=== PATIENT | female | born 1950 | race Caucasian/White ===

== ENCOUNTER → 2019-06-02 10:07 | Outpatient (CLI) | payer MEDICARE, OTHER, SELFPAY ==
--- NOTE | 2019-06-02 | DI.US.S_ITS ---
LIMITED ULTRASOUND OF LEFT BREAST: 06/02/2019 CLINICAL: Palpable left breast lump. Comparison is made to exam dated: 06/02/2019 mammogram - [facility]. Color flow and real-time ultrasound of the left breast upper outer quadrant and left axilla were performed. Costa scale images of the real-time examination were reviewed. Targeted ultrasound was performed in the region of the patient's reported focal painful palpable area of concern. There is a 2.3 x 2.2 x 1.7 cm irregular mass with angular and indistinct margins in the left breast at 1:00 cm 7 cm from the nipple. This demonstrates adjacent vascularity but no convincing internal vascularity on Doppler imaging. This correlates with the patient's palpable area of concern. This also correlates with diagnostic mammography findings performed earlier on the same day 06/02/19. Targeted ultrasound of the left axilla demonstrates morphologically normal lymph nodes with no suspicious cortical thickening and preserved fatty alhaji. IMPRESSION: HIGHLY SUGGESTIVE OF MALIGNANCY 1) 2.3 x 2.2 x 1.7 cm irregular mass with angular and indistinct margins in the left breast at 1:00 cm 7 cm from the nipple. This correlates with the patient's palpable area of concern. This mass is highly suggestive of malignancy and an ultrasound guided biopsy is recommended. 2) Targeted ultrasound of the left axilla demonstrates no left axillary lymphadenopathy. These results and recommendations were discussed with the patient at the time of the exam by the [facility] Radiologist Dr. Kristofer Chase in person. This exam was interpreted at Station ID: [id number]. Electronically Signed By: Peter Day M.D. ecl/:06/02/2019 11:45:06 letter sent: Biopsy Required Ultrasound BI-RADS: 5 Highly suggestive of malignancy
--- NOTE | 2019-06-02 | DI.MG.S_ITS ---
BILATERAL DIGITAL DIAGNOSTIC MAMMOGRAM 3D/2D: 06/02/2019 CLINICAL: Baseline exam. Left breast lump. No prior exams were available for comparison. There are scattered fibroglandular elements in both breasts. There is a triangular marker overlying the skin of the upper outer left breast at middle depth at the site of the patient's reported palpable abnormality. There is an irregular spiculated mass with associated punctate calcifications in the upper outer left breast at middle depth at the site of the patient's focal palpable abnormality. There was an asymmetry in the upper right breast at anterior depth which resolves with spot compression and tomosynthesis views, consistent with superimposition of benign fibroglandular tissues. There are bilateral circular mole markers. IMPRESSION: INCOMPLETE: NEEDS ADDITIONAL IMAGING EVALUATION Irregular spiculated mass with associated punctate calcifications in the upper outer left breast at middle depth at the site of the patient's focal palpable abnormality. Targeted diagnostic ultrasound recommended for further evaluation, which will be performed immediately following this exam. This exam was interpreted at Station ID: [id number]. NOTE: For mammograms, a report in lay terms will be sent to the patient. Approximately 15% of breast malignancies will not be visualized mammographically. In the management of a palpable breast mass, a negative mammogram must not discourage biopsy of a clinically suspicious lesion. Electronically Signed By: Peter Day M.D. ecl/:06/02/2019 11:02:23 ACR BI-RADS Category 0: Incomplete [id number]
== END ==
PROVIDERS: PCP Nurse Practitioner Family; Visit Provider Nurse Practitioner Family
DX: R92.8 Other abnormal and inconclusive findings on diagnostic imaging of breast (principal); R92.1 Mammographic calcification found on diagnostic imaging of breast; N63.21 Unspecified lump in the left breast, upper outer quadrant
CPT/HCPCS: 76642; 77066; G0279

== ENCOUNTER → 2019-07-12 08:59 | Outpatient (CLI) | payer MEDICARE, SELFPAY ==
--- NOTE | 2019-07-12 | DI.MG.S_ITS ---
UNILATERAL LEFT DIGITAL DIAGNOSTIC MAMMOGRAM POST-NEEDLE BIOPSY: 07/12/2019 CLINICAL: Left breast mass. Comparison is made to exam dated: 06/02/2019 [facility]. There are scattered fibroglandular elements in left breast. There is a biopsy marker noted at the biopsy site for previously described left breast mass at the 1:00 position, 7 cm from the nipple. IMPRESSION: POST PROCEDURE MAMMOGRAM FOR MARKER PLACEMENT Successful biopsy marker placement at the biopsy site of suspicious mass at the 1:00 position, 7 cm from the nipple. This exam was interpreted at Station ID: [id number]. NOTE: For mammograms, a report in lay terms will be sent to the patient. Approximately 15% of breast malignancies will not be visualized mammographically. In the management of a palpable breast mass, a negative mammogram must not discourage biopsy of a clinically suspicious lesion. Electronically Signed By: Efren Asencio M.D. aty/:07/12/2019 15:40:38 ACR BI-RADS Category Post-procedure mammogram for marker placement
--- NOTE | 2019-07-12 | DI.US.S_ITS ---
ULTRASOUND GUIDED BIOPSY LEFT BREAST USING VACUUM DEVICE WITH MARKING DEVICE INSERTED AND POST MAMMOGRAPHIC IMAGIN07/12/2019 CLINICAL: Left breast mass. PATIENT CONSENT: Risks (minor bleeding, infection, vasovagal reaction and repeat procedure), benefits and alternatives were explained to the patient and written informed consent was obtained. Correlation is made to exams dated: 06/02/2019 ultrasound and 06/02/2019 mammogram [facility]. An ultrasound guided biopsy using real-time ultrasound was performed for the irregular shaped mass located in the left breast at 1 o'clock middle depth. This was described on the previous ultrasound report. The skin was prepped in the usual manner. Local anesthetic was administered to the access site. A skin barbara was made in the breast. The abnormality was approached from the lateral aspect. A 13 gauge biopsy needle was placed adjacent to the abnormality under ultrasound guidance. Once the needle was documented to be in the correct location, seven specimens were obtained using the Mammotome biopsy system. A clip was inserted into the biopsy cavity. A sterile dressing was applied to the access site. Post procedure mammographic imaging demonstrates the location device at the targeted area. The specimens were sent to the laboratory for pathological analysis. IMPRESSION: ULTRASOUND GUIDED BIOPSY MALIGNANT Ultrasound guided biopsy of the mass in the left breast at 1 o'clock middle depth was successful. 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 Pathology results are concordant with imaging findings. A surgical/oncologic consultation is recommended. This exam was interpreted at Station ID: [id number]. Efren Asencio M.D. aty/:07/18/2019 06:42:29
--- NOTE | 2019-07-12 | PATH_ITS ---
[facility] Accession Number: [id number] . 01 Material submitted: . breast - LEFT BREAST 1:00 7 CM FN MASS . 01 Clinical history: . MASS LEFT BREAST . 02 Diagnosis: Left Breast, 1 o'clock, 7 cm FN Mass, Core Needle Biopsies: Invasive ductal carcinoma with the following features: 1. Adria grade 2 (poor tubule formation-3, intermediate nuclear pleomorphism-2, low mitotic rate-1). 2. Greatest linear extent: 7 mm. 3. 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 4. Microcalcifications: Not identified. 5. Lymphovascular invasion: Not identified. 6. Prognostic markers: - Estrogen receptor: Positive, 75% of cells, moderate intensity. - Progesterone receptor: Positive, 1% of cells, weak intensity. - Her2: Positive (Score 3+). 7. Please see comment. MRV 07/14/2019 1500 Local . 02 Comment: As part of routine quality assurance group leader, this case was also reviewed by Dr. Eddi Durham, who agrees with the diagnosis. Dr. Jessica gave results to Stephen in [facility]'s office on 07/13/2019. . . . 02 Electronically signed: . Dayanara Jessica MD, Pathologist NPI- [id number] . 01 Gross description: . Received one formalin-filled container labeled with the patient's name and designated left breast 1 o'clock 7 cm FN mass. The specimen is received with a plastic filter in container, sample loose in container and consists of three yellow-serna, rough, cylindrical-shaped portions of tissue with an average diameter of 0.2-0.3 cm and range in length from 1.2 cm to 1.7 cm. The specimen is entirely submitted in one cassette. Collection date: 07/12/19. Collection time per container: 10:05 a.m. Total fixation time: Approximately 12 hours. ([id number]) /ELDON 07/13/2019 0223 Local . 02 Microscopic: . . . Testing performed on Block Number: A1 E-Cadherin: Uniformly positive. Estrogen Receptor (SP1): Positive, 75% of cells, moderate intensity. Progesterone Receptor (1E2): Positive, 1% of cells, weak intensity. HER2 (4B5): Positive (Score 3+) . . TECHNICAL NOTE: Cold Ischemia and Fixation Times: Meets requirements in the latest version of the ASCO/CAP guidelines. The scoring criteria for breast biomarkers by immunohistochemistry is based on the current ASCO/CAP guidelines (Robin et al, Arch Pathol Lab Med 2010: 134(6): 907-922 / Andrew Huffman, Arch Pathol Lab Med 2014: 138(2): 241-256). Deparaffinized sections of formalin fixed tissue (along with appropriate positive controls) are incubated with the above antibody(s). Using the automated [employer] stainer, tissue is incubated with the designated antibody* which is then localized by a non-biotin, dual polymer detection system. The external controls are reviewed for appropriate reactivity and found to be adequate. Results on the target cell population are indicated above. These tests have not been validated on decalcified tissue. * This test was developed and its performance characteristics determined by [employer]. It has not been cleared or approved by the U.S. Food and Drug Administration. The FDA has determined that such clearance or approval is not necessary. This test is used for clinical purposes. It should not be regarded as investigational or for research. . 02 Pathologist provided ICD-10: C50.912 . 02 CPT . 789504, K63143, R77458 Performed at: 01 [facility] [address], [place], [place] [id number] MD Miguel Marmolejo MD Phone: [phone] Performed at: 02 [facility] [address] [place], [place] [id number] MD Dayanara Jessica MD Phone: [phone]
== END ==
PROVIDERS: PCP Nurse Practitioner Family; Visit Provider Nurse Practitioner Family
DX: C50.412 Malignant neoplasm of upper-outer quadrant of left female breast (principal); Z17.0 Estrogen receptor positive status [ER+]
CPT/HCPCS: 19083; 77065